=== PATIENT | female | born 1965 | race Caucasian/White ===

== ENCOUNTER 2016-08-25 13:02 | Inpatient (IN) | payer BC ==
[~2016-08-25] VITALS: Ht 157.5 cm; Wt 94.0 kg
[~2016-08-25 13:02] MED LIST: FERR-49 PO; GABA-526 PO; TRAM-40 PO
[2016-08-25] MEDS ORDERED: SOD CHLORIDE 0.9% 1,000 ML IV STA (16:49)
[2016-08-25] MEDS ORDERED: FAMOTIDINE 20 MG INJ IV STA (16:49)
[2016-08-25 17:17] LABS: ADD SCAN DIFF NO
[2016-08-25 17:20] LABS: ABNORMAL IP MESSAGE 1; HEMATOCRIT 19.6 % (37.0-47.0); MEAN CORPUSCULAR HEMOGLOBIN 19.8 pg (29.0-33.0); MEAN CORPUSCULAR VOLUME 73.1 fl (82.0-101.0); PLATELET COUNT 368 10^3/UL (140-415); RED BLOOD COUNT 2.68 10^6/ul (4.20-5.40); RED CELL DISTRIBUTION WIDTH 18.8 % (11.5-14.5); WHITE BLOOD COUNT 9.5 10^3/ul (4.8-10.8)
[2016-08-25 17:29] LABS: HEMOGLOBIN 5.3 g/dl (12.0-16.0)
[2016-08-25 17:57] LABS: EOSINOPHILS # 0.1 10^3/ul (0.0-0.5); LYMPHOCYTES # 2.7 10^3/ul (0.8-2.9); MONOCYTE # 0.6 10^3/ul (0.3-0.9); NEUTROPHIL # 6.2 10^3/ul (1.6-7.5)
[2016-08-25 17:59] LABS: INR 0.97; PARTIAL THROMBOPLASTIN TIME 25.2 Sec (25.0-35.0); PROTIME 12.9 Sec (12.2-14.2)
--- NOTE | 2016-08-25 18:00 | RADRPT ---
PROCEDURE: US Pelvis CLINICAL INDICATION: heavy vag bleeding requiring transfusion TECHNIQUE: Multiple sonographic images of the pelvis were obtained utilizing a transabdominal and endovaginal technique. The images were reviewed on a PACS workstation. COMPARISON: None. LMP: 08/18/2016 FINDINGS: The uterus measures 12.0 x 7.4 x 7.8 cm. The endometrial echo complex measures 6 mm in thickness. Trace heterogeneous endocervical fluid is noted which is likely blood products. There is a 6.1 cm anterior submucosal fibroid with prominent posterior displacement of the endometri um. The right ovary measures 2.3 x 1.4 x 1.4 cm. The left ovary measures 4.0 x 3.5 x 3.8 cm. There is no rmal vascular flow in both ovaries. There is a 3.1 cm partially circumscribed cystic lesion in the left ovary with low level internal ec hoes which may be a hemorrhagic/corpus luteal cyst. Moderate peripheral vascular flow is noted. No significant pelvic free fluid is identified. IMPRESSION: Large 6.1 cm submucosal fibroid with prominent displacement of the endometrium. Trace endocervical fluid is likely hemorrhage given the reported history. 3.1 cm complex cystic lesion in the left ovary may be a hemorrhagic/corpus luteal cyst. RPTAT: EE Physician Domonique Date Time Electronically viewed and signed by Physician Domonique on 08/25/2016 17:59 FRANCISCA
[2016-08-25 18:08] LABS: ALBUMIN 3.8 g/dl (3.3-4.9); CHLORIDE 102 mmol/L (97-110); SODIUM 141 mmol/L (135-144)
[2016-08-25 18:09] LABS: POTASSIUM 3.6 mmol/L (3.5-5.1)
[2016-08-25 18:11] LABS: ALANINE AMINOTRANSFERASE 20 IU/L (13-69); ALBUMIN/GLOBULIN RATIO 1.05; ALKALINE PHOSPHATASE 74 IU/L (42-121); ANION GAP 17 (8-16); ASPARTATE AMINO TRANSFERASE 15 IU/L (15-46); BILIRUBIN,INDIRECT 0.2 mg/dl (0-1.1); BILIRUBIN,TOTAL 0.2 mg/dl (0.2-1.3); BLOOD UREA NITROGEN 9 mg/dl (7-20); CARBON DIOXIDE 26 mmol/L (21-31); CREATININE 0.67 mg/dl (0.44-1.00); GLUCOSE 101 mg/dl (70-220); TOTAL PROTEIN 7.4 g/dl (6.1-8.1)
[2016-08-25 18:12] LABS: CALCIUM 8.7 mg/dl (8.4-10.2)
[2016-08-25 18:26] LABS: TROPONIN-I < 0.012 ng/ml (0.00-0.12)
[2016-08-25 18:32] LABS: ADD UMIC YES; URINE BILIRUBIN (Dip) NEGATIVE (NEGATIVE); URINE BLOOD (Dip) NEGATIVE (NEGATIVE); URINE COLOR LT. YELLOW (YELLOW); URINE GLUCOSE (Dip) NEGATIVE (NEGATIVE); URINE KETONES (Dip) NEGATIVE (NEGATIVE); URINE LEUKOCYTE ESTERASE (Dip) NEGATIVE (NEGATIVE); URINE NITRITE (Dip) NEGATIVE (NEGATIVE); URINE TOTAL PROTEIN (Dip) TRACE (NEGATIVE); URINE UROBILINOGEN (Dip) 0.2 E.U./dL (0.1-1.0)
[2016-08-25 18:49] LABS: BACTERIA,URINE FEW; MUCUS,URINE MODERATE; SQUAMOUS EPITHELIAL CELL,UR MANY; URINE RBCS NONE SEEN /HPF (0)
[2016-08-25] MEDS ORDERED: ONDANSETRON 4 MG INJ IV STA (18:59)
[2016-08-25] MEDS ORDERED: ONDANSETRON 4 MG INJ IV PRN (20:00)
[2016-08-25] MEDS ORDERED: ACETAMINOPHEN 325 MG TAB PO PRN (20:00)
[2016-08-25 20:39] VITALS: TEMP 99.1
--- NOTE | 2016-08-25 21:06 | ERA ---
ER Documentation Chief Complaint Date/Time DATE: 08/25/16 TIME: 20:56 Chief Complaint PT SEND PER PMD FOR LOW H&H, C/O DIZZINESS, VOMITING HPI This 51-year-old female presents for acute symptomatic anemia diagnosed by an H& H at the primary care doctor's office. She denies any GI bleeds but has had some vaginal bleeding recently. No have any vaginal bleeding today but has been vaginal bleeding for some time now. She is unaware of any specific diagnosis such as fibroids that she might have. She is feeling very weak and tired as well as occasional shortness of breath and nausea. 7 difficulty walking because when she stands she feels like she is going to pass out. No chest pain. Current pain of any kind. ROS All systems reviewed and are negative except as per history of present illness. Medications Home Meds Reported Medications Tramadol Hcl* (Ultram*) 50 Mg Tablet, 100 MG PO Q8, TAB 08/29/15 Ferrous Sulfate* (Feosol*) 1 Tab Tablet, 325 MG PO BID, TAB 08/29/15 Discontinued Reported Medications Gabapentin* (Gabapentin*) 600 Mg Tablet, 600 MG PO BID, #60 TAB 08/29/15 Allergies Allergies: Coded Allergies: No Known Allergy (Unverified , 08/25/16) PMhx/Soc History of Surgery: Yes (C SECTION X3, D AND C) Anesthesia Reaction: No Hx Neurological Disorder: No Hx Respiratory Disorders: No Hx Cardiac Disorders: No Hx Psychiatric Problems: No Hx Miscellaneous Medical Probl: No Hx Alcohol Use: No Hx Substance Use: No Hx Tobacco Use: No Smoking Status: Never smoker Physical Exam Vitals Vital Signs Date Time Temp Pulse Resp B/P Pulse Ox O2 Delivery O2 Flow Rate FiO2 08/25/16 18:39 99.1 90 20 121/84 100 Room Air 08/25/16 17:18 85 18 145/76 99 Room Air 08/25/16 17:00 Nasal Cannula 2 08/25/16 13:11 97.4 97 17 135/65 100 Physical Exam Const: [] Moderate distress, appears uncomfortable Head: Atraumatic Eyes: EOMI, PRL, pale conjunctiva of the eye. ENT: Normal External Ears, Nose and Mouth. Neck: Full range of motion..~ No meningismus. Resp: Clear to auscultation bilaterally Cardio: Regular rate and rhythm, no murmurs Abd: Soft, non tender, non distended. Normal bowel sounds Skin: No petechiae or rashes, pale Back: No midline or flank tenderness Ext: No cyanosis, or edema Neur: Awake and alert and oriented 3, cranial nerves II through XII intact, no cerebellar deficits, gait not tested Psych: Normal Mood and Affect Result Diagram: 08/25/16 1705 08/25/16 1705 Results 24 hrs Laboratory Tests Test 08/25/16 17:05 08/25/16 18:00 White Blood Count 9.510^3/ul Red Blood Count 2.6810^6/ul Hemoglobin 5.3g/dl Hematocrit 19.6% Mean Corpuscular Volume 73.1fl Mean Corpuscular Hemoglobin 19.8pg Mean Corpuscular Hemoglobin Concent 27.0g/dl Red Cell Distribution Width 18.8% Platelet Count 22862^3/UL Mean Platelet Volume 11.0fl Neutrophils % 65.0% Lymphocytes % 28.0% Monocytes % 6.0% Eosinophils % 1.0% Neutrophils # 6.210^3/ul Lymphocytes # 2.710^3/ul Monocytes # 0.610^3/ul Eosinophils # 0.110^3/ul Differential Comment Prothrombin Time 12.9Sec Prothrombin Time Ratio 1.0 INR International Normalized Ratio 0.97 Activated Partial Thromboplast Time 25.2Sec Sodium Level 141mmol/L Potassium Level 3.6mmol/L Chloride Level 102mmol/L Carbon Dioxide Level 26mmol/L Anion Gap 17 Blood Urea Nitrogen 9mg/dl Creatinine 0.67mg/dl Glucose Level 101mg/dl Calcium Level 8.7mg/dl Total Bilirubin 0.2mg/dl Direct Bilirubin 0.00mg/dl Indirect Bilirubin 0.2mg/dl Aspartate Amino Transf (AST/SGOT) 15IU/L Alanine Aminotransferase (ALT/SGPT) 20IU/L Alkaline Phosphatase 74IU/L Troponin I < 0.012ng/ml Total Protein 7.4g/dl Albumin 3.8g/dl Globulin 3.60g/dl Albumin/Globulin Ratio 1.05 Urine Color LT. YELLOW Urine Clarity SLIGHTLY CLOUDY Urine pH 7.0 Urine Specific [place] 1.015 Urine Ketones NEGATIVE Urine Nitrite NEGATIVE Urine Bilirubin NEGATIVE Urine Urobilinogen 0.2 E.U./dL Urine Leukocyte Esterase NEGATIVE Urine Microscopic RBC NONE SEEN/HPF Urine Microscopic WBC 2-5/HPF Urine Squamous Epithelial Cells MANY Urine Bacteria FEW Urine Mucus MODERATE Urine Hemoglobin NEGATIVE Urine Glucose NEGATIVE% Urine Total Protein TRACE Current Medications Medications (Trade) Dose Ordered Sig/Andrés Route PRN Reason Start Time Stop Time Status Last Admin Dose Admin Sodium Chloride (NS) 1,000 ml @ 1,000 mls/hr Q1H STAT IV 08/25/16 16:49 08/25/16 17:48 DC 08/25/16 17:09 Famotidine (Pepcid Iv) 20 mg ONCE STAT IV 08/25/16 16:49 08/25/16 16:51 DC 08/25/16 17:08 Ondansetron HCl (Zofran Inj) 4 mg ONCE STAT IV 08/25/16 18:59 08/25/16 19:00 DC Ondansetron HCl (Zofran Inj) 4 mg BRIDGE ORDER PRN IV NAUSEA AND/OR VOMITING 08/25/16 20:00 08/26/16 19:59 Acetaminophen (Tylenol Tab) 650 mg ER BRIDGE PRN PO MILD PAIN/FEVER 08/25/16 20:00 08/26/16 19:59 Procedures/MDM Acute severe symptomatic anemia secondary to vaginal bleeding over time. Patient was initially hydrated with normal saline. Hemoglobin returned at a very low level and she was transfused 3 units of packed red blood cells beginning in the emergency room. She was originally occasionally tachycardic with a heart rate over 100 on the monitor but this is improved since she began fluid and blood products administration. I have carefully monitored her with repeat physical exam and I see no signs of fluid overload yet. Symptoms of severe lightheadedness and presyncope are also improving thus far. He is going to be admitted to panel in her Dr. Rendon. I spoke with Dr. Chavez, office services coordinator on-call, who agreed to see the patient on consult. EKG interpretation: Normal sinus rhythm rate of 93, normal axis, no ST or T- wave changes concerning for acute ischemia, no concerning intervals. property assessment monitor interpretation: Normal sinus rhythm alternating with occasional sinus tachycardia followed by normal sinus rhythm. No other arrhythmias Pelvic ultrasound interpretation: Large uterine fibroid trace pelvic fluid. Critical care time 36 minutes: This includes treatment of severe symptomatic anemia secondary to blood loss, very careful fluid administration considering the volume expansion of 3 units of blood, repeat visits patient's bedside to reassess cardiopulmonary status, chart reviewed, discussion with office services coordinator, admitting doctor, patient. This does not include any billable procedures. Departure Diagnosis: Primary Impression: Severe anemia Additional Impressions: Symptomatic anemia Vaginal bleeding Fibroid uterus Generalized weakness Volume depletion due to hemorrhage Condition: SOLO Fowler DO August 25, 2016 21:06
[2016-08-25] MEDS ORDERED: METHYLPREDNISOLONE 125 MG INJ IV ONE (21:30)
[2016-08-25] MEDS ORDERED: DIPHENHYDRAMINE 50 MG INJ IV ONE (21:30)
[2016-08-25 22:22] VITALS: BP 135/60; PULSE 83; RESP 18; Ht 157.5 cm; Wt 94.0 kg
[2016-08-26 02:39] VITALS: BP 130/58; PULSE 84; RESP 18
[2016-08-26] MEDS ORDERED: BISACODYL (EC) 5 MG TAB PO PRN (04:30)
[2016-08-26] MEDS ORDERED: NACL 0.9% 3 ML SYG IV SCH (04:30)
[2016-08-26] MEDS ORDERED: DOCUSATE SODIUM 100 MG CAP PO PRN (04:30)
[2016-08-26 05:14] LABS: ADD SCAN DIFF NO
[2016-08-26 05:25] LABS: ABNORMAL IP MESSAGE 1; BASOPHILS % 0.4 % (0.0-2.0); EOSINOPHILS # 0.1 10^3/ul (0.0-0.5); EOSINOPHILS % 1.3 % (0.0-7.0); LYMPHOCYTES # 2.2 10^3/ul (0.8-2.9); LYMPHOCYTES % 24.3 % (15.0-51.0); MEAN CORPUSCULAR HEMOGLOBIN 22.6 pg (29.0-33.0); MEAN CORPUSCULAR HGB CONC 29.6 g/dl (32.0-37.0); MEAN CORPUSCULAR VOLUME 76.4 fl (82.0-101.0); MEAN PLATELET VOLUME 11.2 fl (7.4-10.4); MONOCYTE # 0.7 10^3/ul (0.3-0.9); MONOCYTES % 8.1 % (0.0-11.0); NEUTROPHIL # 5.8 10^3/ul (1.6-7.5); NEUTROPHILS % 65.3 % (39.0-77.0); NUCLEATED RED BLOOD CELLS% 0.2 /100WBC (0.0-0.0); PLATELET COUNT 312 10^3/UL (140-415); RED BLOOD COUNT 3.01 10^6/ul (4.20-5.40); RED CELL DISTRIBUTION WIDTH 19.8 % (11.5-14.5); WHITE BLOOD COUNT 8.9 10^3/ul (4.8-10.8)
[2016-08-26 05:42] LABS: HEMOGLOBIN 6.8 g/dl (12.0-16.0)
[2016-08-26 06:16] VITALS: BP 130/70; PULSE 84; RESP 18
[2016-08-26 06:30] VITALS: BP 130/58; PULSE 84; RESP 18
[2016-08-26 07:00] VITALS: BP 147/63; RESP 18
[2016-08-26] MEDS: FAMOTIDINE 20 MG TAB PO SCH ×2 (09:08→21:18)
[2016-08-26] MEDS: FERROUS SULFATE (EC) 325 MG TAB PO SCH ×2 (09:08→21:18)
--- NOTE | 2016-08-26 09:08 | HP ---
Date/Time of Note Date/Time of Note DATE: 08/26/16 TIME: 08:57 Assessment/Plan VTE Prophylaxis VTE Prophylaxis Intervention: contraindicated (Vaginal bleeding), SCD's VTE Contraindication Reason: bleeding Lines/Catheters [facility] Saline Lock Assessment/Plan Chief Complaint/Hosp Course This is a 51-year-old female being admitted to the [facility] floor for: #1 Vaginal bleeding: Hemoglobin 5.6, transfusion started in the ED will continue to monitor H&H and transfuse additional units as necessary. Will consult OB for suspected uterine fibroid bleeding as ultrasound of the pelvis did reveal 6.1 cm submucosal uterine fibroid. Regular diet. #2 DVT and GI prophylaxis: Famotidine, SCDs no chemical prophylaxis at this time secondary to bleeding Problems: HPI/ROS Admit Date/Time Admit Date/Time August 25, 2016 at 19:53 Hx of Present Illness This 51-year-old female presents for acute symptomatic anemia diagnosed by an H& H at the primary care doctor's office. She denies any GI bleeds but has had some vaginal bleeding recently. No have any vaginal bleeding today but has been vaginal bleeding for some time now. She is unaware of any specific diagnosis such as fibroids that she might have. She is feeling very weak and tired as well as occasional shortness of breath and nausea. Has difficulty walking because when she stands she feels like she is going to pass out. No chest pain. Patient reports that her periods started on August 18 and has not stopped since then. Allergies: NKDA Medications: See JUN SALVATORE Const: As per HPI Eyes : No pain discharge or redness or change in visual acuity ENT: No pain, sore throat, congestion, congestion, dysphagia or discharge Respiratory: No shortness of breath, cough, sputum, wheezing, or pleuritic pain Cardiovascular: No chest pain, palpitation, PND, or edema GI : no change in appetite, abdominal pain, nausea, vomiting, diarrhea, constipation, or change in the color his stool Genitourinary: As per HPI Musculoskeletal: No joint pain, back pain, neck pain, restricted range of motion in neck or joints Skin: No rash, bruising or hives Neuro: No headache, dizziness, syncope, seizure, focal weakness Endocrine: No polyuria, polydipsia, temperature intolerance Psych: No hallucination, depression, anxiety or suicidal ideation PMH/Family/Social Past Medical History Heavy periods and menstrual cramps Past Surgical History 3 Family History Significant Family History: no pertinent family hx Social History Alcohol Use: none Smoking Status: Never smoker Drug Use: none Exam/Review of Systems Vital Signs Vitals Vital Signs Date Time Temp Pulse Resp B/P Pulse Ox O2 Delivery O2 Flow Rate FiO2 08/26/16 07:00 98.2 73 18 147/63 99 08/26/16 06:30 Room Air 08/25/16 17:00 2 Intake and Output 08/25/16 08/25/16 08/26/16 15:00 23:00 07:00 Intake Total 350 ml 1400 ml Output Total 200 ml 1200 ml Balance 150 ml 200 ml Exam Exam General: Patient is well-developed well-nourished The patient is alert oriented -3 lying comfortably in bed. HEENT: Atraumatic, normocephalic. The pupils are equal, round and reactive. Extraocular motor are intact Neck: Supple with full range of motion. No rigidity or meningismus Chest: Nontender Lungs: Clear to auscultation bilaterally no crackles rales or wheezing Heart: Normal S1-S2, Regular rhythm and rate. No murmur, S3, or S4 Abdomen: Mild tenderness to palpation above the suprapubic area Extremities: Normal to inspection, no edema no cyanosis Neurologic: Normal mental status, speech normal, cranial nerves II through XII are intact, motor and sensory are intact, no focal weakness Additional Comments PROCEDURE: US Pelvis CLINICAL INDICATION: heavy vag bleeding requiring transfusion TECHNIQUE: Multiple sonographic images of the pelvis were obtained utilizing a transabdominal and endovaginal technique. The images were reviewed on a PACS workstation. COMPARISON: None. LMP: 08/18/2016 FINDINGS: The uterus measures 12.0 x 7.4 x 7.8 cm. The endometrial echo complex measures 6 mm in thickness. Trace heterogeneous endocervical fluid is noted which is likely blood products. There is a 6.1 cm anterior submucosal fibroid with prominent posterior displacement of the endometrium. The right ovary measures 2.3 x 1.4 x 1.4 cm. The left ovary measures 4.0 x 3.5 x 3.8 cm. There is normal vascular flow in both ovaries. There is a 3.1 cm partially circumscribed cystic lesion in the left ovary with low level internal echoes which may be a hemorrhagic/corpus luteal cyst. Moderate peripheral vascular flow is noted. No significant pelvic free fluid is identified. IMPRESSION: Large 6.1 cm submucosal fibroid with prominent displacement of the endometrium. Trace endocervical fluid is likely hemorrhage given the reported history. 3.1 cm complex cystic lesion in the left ovary may be a hemorrhagic/corpus luteal cyst. Labs Result Diagram: 08/26/16 0430 08/25/16 1705 Medications Medications Current Medications Acetaminophen (Tylenol Tab) 650 mg Q6H PRN PO PAIN LEVEL 1-3 OR FEVER; Start at 04:30 Docusate Sodium (Colace) 100 mg Q12H PRN PO CONSTIPATION; Start 08/26/16 at 04: 30 Bisacodyl (Dulcolax) 5 mg DAILY PRN PO CONSTIPATION; Start 08/26/16 at 04:30 Famotidine (Pepcid) 20 mg Q12 PO ; Start 08/26/16 at 09:00 Ferrous Sulfate (Ferrous Sulfate (Ec)) 325 mg BID PO ; Start 08/26/16 at 09:00 DARIEN RIVERA August 26, 2016 09:07
--- NOTE | 2016-08-26 10:16 | PN ---
Date/Time of Note Date/Time of Note DATE: 08/26/16 TIME: 10:10 Assessment/Plan VTE Prophylaxis VTE Prophylaxis Intervention: contraindicated Lines/Catheters [facility] Saline Lock Assessment/Plan Chief Complaint/Hosp Course Assessment 1. Severe anemia secondary to vaginal bleeding from underlying fibroid disease Plan 1. PINMAKER evaluation 2. Continue packed red blood cells 3. Encourage ambulation Disposition The patient states she would like to defer surgery for now' until her next of kin is available to take care of her children. We will await PINMAKER recommendations patient will likely need iron replacement. Problems: Subjective 24 Hr Interval Summary Free Text/Dictation Patient comfortable this morning no new events receiving Packed red blood cells Exam/Review of Systems Vital Signs Vitals Vital Signs Date Time Temp Pulse Resp B/P Pulse Ox O2 Delivery O2 Flow Rate FiO2 08/26/16 07:00 98.2 73 18 147/63 99 08/26/16 06:30 Room Air 08/25/16 17:00 2 Intake and Output 08/25/16 08/25/16 08/26/16 15:00 23:00 07:00 Intake Total 350 ml 1400 ml Output Total 200 ml 1200 ml Balance 150 ml 200 ml Exam GENERAL: Well-nourished well-developed lady comfortable at rest VITAL SIGNS: per chart NECK: Supple. No JVD or lymphadenopathy. CARDIAC EXAM: S1, S2. No added sounds or murmurs. CHEST: clear bilaterally, No added sounds, rales or wheezes ABDOMEN: Soft, nontender. No guarding or rebound. EXTREMITIES: No cyanosis, clubbing or edema. NEUROLOGIC: Generalized weakness. No focal deficits. Results Result Diagram: 08/26/16 0430 08/25/16 1705 Results 24 hrs Laboratory Tests Test 08/25/16 17:05 08/25/16 18:00 08/26/16 04:30 White Blood Count 9.5 8.9 Red Blood Count 2.68 L 3.01 L Hemoglobin 5.3 *L 6.8 #*L Hematocrit 19.6 L 23.0 L Mean Corpuscular Volume 73.1 L 76.4 L Mean Corpuscular Hemoglobin 19.8 L 22.6 L Mean Corpuscular Hemoglobin Concent 27.0 L 29.6 L Red Cell Distribution Width 18.8 H 19.8 H Platelet Count 368 312 Mean Platelet Volume 11.0 H 11.2 H Neutrophils % 65.0 65.3 Lymphocytes % 28.0 24.3 Monocytes % 6.0 8.1 Eosinophils % 1.0 1.3 Neutrophils # 6.2 5.8 Lymphocytes # 2.7 2.2 Monocytes # 0.6 0.7 Eosinophils # 0.1 0.1 Differential Comment Prothrombin Time 12.9 Prothrombin Time Ratio 1.0 INR International Normalized Ratio 0.97 Activated Partial Thromboplast Time 25.2 Sodium Level 141 Potassium Level 3.6 Chloride Level 102 Carbon Dioxide Level 26 Anion Gap 17 H Blood Urea Nitrogen 9 Creatinine 0.67 Glucose Level 101 Calcium Level 8.7 Total Bilirubin 0.2 Direct Bilirubin 0.00 Indirect Bilirubin 0.2 Aspartate Amino Transf (AST/SGOT) 15 Alanine Aminotransferase (ALT/SGPT) 20 Alkaline Phosphatase 74 Troponin I < 0.012 Total Protein 7.4 Albumin 3.8 Globulin 3.60 H Albumin/Globulin Ratio 1.05 Urine Color LT. YELLOW Urine Clarity SLIGHTLY CLOUDY Urine pH 7.0 Urine Specific [place] 1.015 Urine Ketones NEGATIVE Urine Nitrite NEGATIVE Urine Bilirubin NEGATIVE Urine Urobilinogen 0.2 E.U./dL Urine Leukocyte Esterase NEGATIVE Urine Microscopic RBC NONE SEEN Urine Microscopic WBC 2-5 Urine Squamous Epithelial Cells MANY Urine Bacteria FEW Urine Mucus MODERATE Urine Hemoglobin NEGATIVE Urine Glucose NEGATIVE Urine Total Protein TRACE Basophils % 0.4 Nucleated Red Blood Cells % 0.2 H Basophils # 0.0 Nucleated Red Blood Cells # 0.0 Medications Medications Current Medications Acetaminophen (Tylenol Tab) 650 mg Q6H PRN PO PAIN LEVEL 1-3 OR FEVER; Start at 04:30 Docusate Sodium (Colace) 100 mg Q12H PRN PO CONSTIPATION; Start 08/26/16 at 04: 30 Bisacodyl (Dulcolax) 5 mg DAILY PRN PO CONSTIPATION; Start 08/26/16 at 04:30 Famotidine (Pepcid) 20 mg Q12 PO Last administered on 08/26/16 09:08; Admin Dose 20 MG; Start 08/26/16 at 09:00 Ferrous Sulfate (Ferrous Sulfate (Ec)) 325 mg BID PO Last administered on 09:08; Admin Dose 325 MG; Start 08/26/16 at 09:00 JEREMIAH NUNO MD, [facility] August 26, 2016 10:16
[2016-08-26 13:12] LABS: ADD SCAN DIFF NO
[2016-08-26 13:20] LABS: BASOPHILS % 0.5 % (0.0-2.0); EOSINOPHILS # 0.2 10^3/ul (0.0-0.5); EOSINOPHILS % 2.2 % (0.0-7.0); HEMATOCRIT 26.3 % (37.0-47.0); HEMOGLOBIN 7.9 g/dl (12.0-16.0); LYMPHOCYTES # 2.1 10^3/ul (0.8-2.9); LYMPHOCYTES % 25.6 % (15.0-51.0); MEAN CORPUSCULAR HEMOGLOBIN 23.1 pg (29.0-33.0); MEAN CORPUSCULAR VOLUME 76.9 fl (82.0-101.0); MEAN PLATELET VOLUME 10.8 fl (7.4-10.4); MONOCYTE # 0.6 10^3/ul (0.3-0.9); MONOCYTES % 7.7 % (0.0-11.0); NEUTROPHIL # 5.2 10^3/ul (1.6-7.5); NEUTROPHILS % 63.3 % (39.0-77.0); NUCLEATED RED BLOOD CELLS% 0.2 /100WBC (0.0-0.0); PLATELET COUNT 312 10^3/UL (140-415); RED BLOOD COUNT 3.42 10^6/ul (4.20-5.40); RED CELL DISTRIBUTION WIDTH 19.4 % (11.5-14.5); WHITE BLOOD COUNT 8.2 10^3/ul (4.8-10.8)
[2016-08-26 17:49] LABS: IRON 50 ug/dl (35-150)
--- NOTE | 2016-08-26 17:54 | CONS ---
Date/Time of Note Date/Time of Note DATE: 08/26/16 TIME: :28 Assessment/Plan Assessment/Plan Chief Complaint/Hosp Course Symptomatic anemia secondary to acute on chronic anemia due to long-term menometrorrhagia. She is a status post D&C 1 year ago, consistent with complex endometrial Hyperplasia without atypia. Patient had not been on any medication or treatments since last year. Her prior Pap history is unknown. she is status post blood transfusion, hemoglobin improved as well as her symptoms I have discussed with the patient etiology of abnormal uterine bleeding, could be in her case multifactorial including enlarged submucosal fibroid as well as perimenopausal menometrorrhagia, hypothyroidism as 1 of the other etiologies is possible as well. Thyroid labs has been ordered as well as iron studies. Recommend follow-up with a thyroid labs she also had a history of complex endometrial hyperplasia without atypia Which essentially increased risk of endometrial cancer as well without treatment , Patient needs to proceed with repeat D&C, ideally if possible in this admission to ensure that there is no endometrial cancer currently present. She also has a complex right adnexal cystic mass. Recommended proceed with tumor markers including CA 125 CA-19-9 which has been already ordered. Will follow up with the results as well. Patient is eventually a candidate for hysterectomy, if her biopsy as well as tumor markers are negative will consider an simple hysterectomy. Currently bleeding stopped. I have discussed with the patient about final plan with surgery. Patient currently desires to postpone hysterectomy until after 2 months when her comes back from [place]. She needs to have the rest of the workup after D&C including Pap smear as outpatient in her [facility] office which is Dr. Harrison. She already has established care with Dr. Harrison last year. Recommended to have a follow-up with Dr. Harrison after D&C. would recommend the endometrial biopsy will be sent as a sol specimen she is a candidate for Lupron with norethindrone add back if the biopsy does not show any evidence of endometrial cancer. If there is any concern for malignancy including abnormal pathology and D&C or abnormal tumor markers would refer the patient to [facility] oncology. Patient can be discharged home with norethindrone twice daily, after D&C with follow-up with Dr. Harrison. she could then be able to receive Lupron as outpatient if the pathology shows benign finding, considering her bleeding does not recur with a plan to proceed with hysterectomy that would potentially help with. Improving her iron stores as well as shrinking the size of the fibroid. This plan has been discussed with the patient in detail If the patient agrees to proceed with D&C, can book for tomorrow. currently refused D&C or any surgery and this admission. Will consider to rediscuss again with the patient and her family Problems: Consultation Date/Type/Reason Admit Date/Time August 25, 2016 at 19:53 Date of Consultation: August 26, 2016 Type of Consultation: [facility] [employer] Reason for Consultation Severe anemia secondary to menometrorrhagia Hx of Present Illness 51-year-old [place] female was admitted last night due to severe symptomatic anemia secondary to chronic menometrorrhagia with acute episodes of heavy bleeding for the past month. Patient reports history of menometrorrhagia since 2 years ago, however her bleeding worsened for the past 2 months and specifically for the past 10 days. She could not get out of the house due to continued menorrhagia and heavy bleeding. She was feeling dizzy and weak and tired. She was seen in her primary care office yesterday and was noted to be pale. Per patient she had tested with HemoCue in the office and hemoglobin was 4 and for that reason was referred by her PCP to the hospital for blood transfusion and workup of symptomatic anemia and menometrorrhagia. Patient states that she had lost insurance for about a year. After reestablishing of her insurance she was seen by Dr. Harrison last year in August 2015 due to continued menometrorrhagia. She was noted to have fibroid uterus and underwent D&C. Pathology reviewed and was consistent with focal complex endometrial hyperplasia without atypia. Patient did not receive any treatment in the interim up until this admission. She denies any prior history of blood transfusion. She denies any known history of thyroid problem as well as denies any symptoms. She denies unintentional weight loss, palpitation, anxiety or any hypothyroidism symptoms. She is unsure whether she has been ever tested for the thyroid however she reports history of fibroid uterus. Per patient she was told that she needed hysterectomy however never scheduled but plans to do with in the next couple months. Patient currently in bed and denies any shortness of breath, chest pain, palpitation, dizziness or lightheadedness or any other symptoms. She reports that her bleeding significantly decreased currently. She reports her symptoms improved with blood transfusion. Patient desires to have surgery but not for the next 2 month due to planned trip of her . She desires to have the hysterectomy done when her returns back after 2 months. Patient denies any prior history of abnormal Pap smear or mammogram in the past. She is somewhat poor historian. She is unaware of the days of her prior Pap smear or mammogram. 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 This happened in [place] Last Pap smear: Unsure Last mammogram: Unsure. Denies feeling any breast lump or mass Medical History: no pertinent history Past Surgical History Past Surgical Hx: no surgical history Family History Significant Family History: no pertinent family hx Social History Alcohol Use: none Smoking Status: Never smoker Drug Use: none Other Social History Patient works at [employer] Denies a smoking, drinking or using any drugs. She has never been smoker Exam/Review of Systems Vital Signs Vitals Vital Signs Date Time Temp Pulse Resp B/P Pulse Ox O2 Delivery O2 Flow Rate FiO2 08/26/16 07:00 98.2 73 18 147/63 99 08/26/16 06:30 Room Air 08/25/16 17:00 2 Intake and Output 08/25/16 08/25/16 08/26/16 14:59 22:59 06:59 Intake Total 350 ml 1400 ml Output Total 200 ml 1200 ml Balance 150 ml 200 ml Exam Constitutional: alert, oriented, well developed Psych: nl mood/affect, no complaints Head: atraumatic, normocephalic Eyes: EOMI, nl conjunctiva, nl lids, other (? Exophthalmos, could be normal variant, if thyroid labs are normal) Neck: non-tender, other (No thyromegaly), supple Respiratory: clear to auscultation, normal air movement Cardiovascular: nl pulses, regular rate and rhythm Gastrointestinal: nl liver, spleen, non-tender, soft Genitourinary - Female: other (Uterus midline and enlarged, firm. Uterus palpable up to 1-2 cm above the umbilicus, exam consistent with fibroid uterus. There is tenderness in palpation of the right adnexa. Right and left ovary are not palpable by vaginal exam however there is moderate tenderness in palpation in the right adnexa. No CMT. Speculum exam done. No blood in the vault. Cervix looks normal. No vaginal or cervical lesion. No abnormal vaginal discharge.) Musculoskeletal: other (Moderate bilateral varicosity more in the right side and in the upper thigh noted. No calf tenderness, no cords palpable, negative Homans sign.) Neurological: LEAD INJECTION MOLD TECHNICIAN II-XII intact, nl mental status, nl speech, nl strength Skin: other (Pale) Results Result Diagram: 08/26/16 1250 08/25/16 1705 Results 24 hrs Laboratory Tests Test 08/25/16 18:00 08/26/16 04:30 08/26/16 12:50 Urine Color LT. YELLOW Urine Clarity SLIGHTLY CLOUDY Urine pH 7.0 Urine Specific [place] 1.015 Urine Ketones NEGATIVE Urine Nitrite NEGATIVE Urine Bilirubin NEGATIVE Urine Urobilinogen 0.2 E.U./dL Urine Leukocyte Esterase NEGATIVE Urine Microscopic RBC NONE SEEN Urine Microscopic WBC 2-5 Urine Squamous Epithelial Cells MANY Urine Bacteria FEW Urine Mucus MODERATE Urine Hemoglobin NEGATIVE Urine Glucose NEGATIVE Urine Total Protein TRACE White Blood Count 8.9 8.2 Red Blood Count 3.01 L 3.42 L Hemoglobin 6.8 #*L 7.9 L Hematocrit 23.0 L 26.3 L Mean Corpuscular Volume 76.4 L 76.9 L Mean Corpuscular Hemoglobin 22.6 L 23.1 L Mean Corpuscular Hemoglobin Concent 29.6 L 30.0 L Red Cell Distribution Width 19.8 H 19.4 H Platelet Count 312 312 Mean Platelet Volume 11.2 H 10.8 H Neutrophils % 65.3 63.3 Lymphocytes % 24.3 25.6 Monocytes % 8.1 7.7 Eosinophils % 1.3 2.2 Basophils % 0.4 0.5 Nucleated Red Blood Cells % 0.2 H 0.2 H Neutrophils # 5.8 5.2 Lymphocytes # 2.2 2.1 Monocytes # 0.7 0.6 Eosinophils # 0.1 0.2 Basophils # 0.0 0.0 Nucleated Red Blood Cells # 0.0 0.0 Medications Medications Current Medications Acetaminophen (Tylenol Tab) 650 mg Q6H PRN PO PAIN LEVEL 1-3 OR FEVER; Start at 04:30 Docusate Sodium (Colace) 100 mg Q12H PRN PO CONSTIPATION; Start 08/26/16 at 04: 30 Bisacodyl (Dulcolax) 5 mg DAILY PRN PO CONSTIPATION; Start 08/26/16 at 04:30 Famotidine (Pepcid) 20 mg Q12 PO Last administered on 08/26/16 09:08; Admin Dose 20 MG; Start 08/26/16 at 09:00 Ferrous Sulfate (Ferrous Sulfate (Ec)) 325 mg BID PO Last administered on 09:08; Admin Dose 325 MG; Start 08/26/16 at 09:00 Leuprolide Acetate (Lupron Depot) 11.25 mg ONCE ONCE IM ; Start 08/26/16 at 17: 30; Stop 08/26/16 at 17:31; Status UNV Norethindrone (Aygestin) 5 mg BID PO ; Start 08/26/16 at 21:00 Procedures Procedures Vital Signs Date Time Temp Pulse Resp B/P Pulse Ox O2 Delivery O2 Flow Rate FiO2 08/26/16 07:00 98.2 73 18 147/63 99 08/26/16 06:30 Room Air 08/25/16 17:00 2 Intake and Output 08/25/16 08/25/16 08/26/16 14:59 22:59 06:59 Intake Total 350 ml 1400 ml Output Total 200 ml 1200 ml Balance 150 ml 200 ml VS - Last 72 Hours, by Label Date Time Temp Pulse Resp B/P Pulse Ox O2 Delivery O2 Flow Rate FiO2 08/26/16 07:00 98.2 73 18 147/63 99 08/26/16 06:30 98.0 84 18 130/58 97 Room Air 08/26/16 06:16 98.2 84 18 130/70 97 Room Air 08/26/16 02:39 98.0 84 18 130/58 98 Room Air 08/25/16 22:22 98.0 83 18 135/60 97 Room Air 08/25/16 20:39 99.1 90 20 118/80 100 Room Air 08/25/16 18:39 99.1 90 20 121/84 100 Room Air 08/25/16 17:18 85 18 145/76 99 Room Air 08/25/16 17:00 Nasal Cannula 2 08/25/16 13:11 97.4 97 17 135/65 100 Pelvic ultrasound consistent with a large intrauterine submucosal fibroid with distortion of endometrial cavity as well as a complex right adnexal cyst 3 and half centimeter Pathology report from prior D&C done in August 2015 reviewed. That showed focal complex endometrial hyperplasia without atypia. GRETCHEN TRAN MD August 26, 2016 17:39
[2016-08-26 17:58] LABS: TOTAL IRON BINDING CAPACITY 437 ug/dl (241-421)
[2016-08-26 19:58] VITALS: BP 128/72; RESP 20
[2016-08-26] MEDS: NORETHINDRONE 5 MG TAB PO SCH (21:18)
[2016-08-27] VITALS (18 sets, daily range): BP systolic 102–150; BP diastolic 54–70; PULSE 64–76; RESP 16–20
[2016-08-27] MEDS: ACETAMINOPHEN 325 MG TAB PO PRN (04:28)
[2016-08-27 05:06] LABS: ADD SCAN DIFF NO
[2016-08-27 05:11] LABS: BASOPHILS % 0.3 % (0.0-2.0); EOSINOPHILS # 0.2 10^3/ul (0.0-0.5); HEMATOCRIT 28.5 % (37.0-47.0); HEMOGLOBIN 8.9 g/dl (12.0-16.0); LYMPHOCYTES # 2.3 10^3/ul (0.8-2.9); LYMPHOCYTES % 25.1 % (15.0-51.0); MEAN CORPUSCULAR HEMOGLOBIN 24.3 pg (29.0-33.0); MEAN CORPUSCULAR HGB CONC 31.2 g/dl (32.0-37.0); MEAN CORPUSCULAR VOLUME 77.9 fl (82.0-101.0); MEAN PLATELET VOLUME 11.3 fl (7.4-10.4); MONOCYTE # 0.6 10^3/ul (0.3-0.9); MONOCYTES % 6.9 % (0.0-11.0); NEUTROPHIL # 5.9 10^3/ul (1.6-7.5); NEUTROPHILS % 64.7 % (39.0-77.0); NUCLEATED RED BLOOD CELLS% 0.3 /100WBC (0.0-0.0); PLATELET COUNT 309 10^3/UL (140-415); RED BLOOD COUNT 3.66 10^6/ul (4.20-5.40); RED CELL DISTRIBUTION WIDTH 20.5 % (11.5-14.5); WHITE BLOOD COUNT 9.1 10^3/ul (4.8-10.8)
[2016-08-27 05:31] LABS: CREATININE 0.67 mg/dl (0.44-1.00)
[2016-08-27 05:32] LABS: CALCIUM 8.4 mg/dl (8.4-10.2); MAGNESIUM 2.1 mg/dl (1.7-2.5); PHOSPHORUS 3.4 mg/dl (2.5-4.9)
[2016-08-27 05:56] LABS: POTASSIUM 3.7 mmol/L (3.5-5.1)
[2016-08-27] MEDS: FAMOTIDINE 20 MG TAB PO SCH ×2 (08:54→21:16)
[2016-08-27] MEDS: FERROUS SULFATE (EC) 325 MG TAB PO SCH ×2 (08:54→21:16)
[2016-08-27] MEDS: NORETHINDRONE 5 MG TAB PO SCH ×2 (08:54→21:15)
--- NOTE | 2016-08-27 14:15 | PN ---
Date/Time of Note Date/Time of Note DATE: 08/27/16 TIME: 14:12 Assessment/Plan VTE Prophylaxis VTE Prophylaxis Intervention: SCD's Lines/Catheters [facility] Saline Lock Assessment/Plan Chief Complaint/Hosp Course Assessment and plan 1.Symptomatic anemia secondary to acute on chronic anemia due to long-term menometrorrhagia. Patient is status post transfusion of packed red blood cell Continue to monitor hemoglobin hematocrit Follow up iron panel and treat accordingly 2. menometrorrhagia. This is likely secondary to fibroid [facility] team has been consulted Plan for D&C today 3. submucosal fibroid with prominent displacement of the endometrium [facility] team following Follow up pathology as per [facility] team Problems: Subjective 24 Hr Interval Summary Free Text/Dictation Patient continues to complain of having minimal abdominal discomfort No nausea vomiting diarrhea N.p.o. secondary to upcoming procedure Exam/Review of Systems Vital Signs Vitals Vital Signs Date Time Temp Pulse Resp B/P Pulse Ox O2 Delivery O2 Flow Rate FiO2 08/27/16 08:29 98.2 68 18 112/56 96 08/26/16 06:30 Room Air 08/25/16 17:00 2 Intake and Output 08/26/16 08/26/16 08/27/16 15:00 23:00 07:00 Intake Total 1840 ml 750 ml Output Total 2100 ml 550 ml Balance -260 ml 200 ml Exam General: The patient is moderately overweight, Not in acute distress. HEENT: Atraumatic, normocephalic. The pupils are equal and round . Neck: Supple with full range of motion. Chest: Normal expansion of the thorax during inspiration Lungs: Clear to auscultation bilaterally Heart: Normal S1-S2, Regular rhythm and rate. Abdomen: Soft , nontender, nondistended , bowel sounds are present. Extremities: Normal to inspection, no edema no cyanosis Neurologic: Normal mental status,The patient is awake, alert and oriented . Results Result Diagram: 08/27/16 0415 08/27/16 0415 Results 24 hrs Laboratory Tests Test 08/27/16 04:15 White Blood Count 9.1 Red Blood Count 3.66 L Hemoglobin 8.9 L Hematocrit 28.5 L Mean Corpuscular Volume 77.9 L Mean Corpuscular Hemoglobin 24.3 L Mean Corpuscular Hemoglobin Concent 31.2 L Red Cell Distribution Width 20.5 H Platelet Count 309 Mean Platelet Volume 11.3 H Neutrophils % 64.7 Lymphocytes % 25.1 Monocytes % 6.9 Eosinophils % 2.0 Basophils % 0.3 Nucleated Red Blood Cells % 0.3 H Neutrophils # 5.9 Lymphocytes # 2.3 Monocytes # 0.6 Eosinophils # 0.2 Basophils # 0.0 Nucleated Red Blood Cells # 0.0 Sodium Level 140 Potassium Level 3.7 Chloride Level 108 Carbon Dioxide Level 23 Anion Gap 13 Blood Urea Nitrogen 8 Creatinine 0.67 Glucose Level 91 Calcium Level 8.4 Phosphorus Level 3.4 Magnesium Level 2.1 Medications Medications Current Medications Acetaminophen (Tylenol Tab) 650 mg Q6H PRN PO PAIN LEVEL 1-3 OR FEVER Last administered on 08/27/16 04:28; Admin Dose 650 MG; Start 08/26/16 at 04:30 Docusate Sodium (Colace) 100 mg Q12H PRN PO CONSTIPATION; Start 08/26/16 at 04: 30 Bisacodyl (Dulcolax) 5 mg DAILY PRN PO CONSTIPATION; Start 08/26/16 at 04:30 Famotidine (Pepcid) 20 mg Q12 PO Last administered on 08/27/16 08:54; Admin Dose 20 MG; Start 08/26/16 at 09:00 Ferrous Sulfate (Ferrous Sulfate (Ec)) 325 mg BID PO Last administered on 08:54; Admin Dose 325 MG; Start 08/26/16 at 09:00 Norethindrone (Aygestin) 5 mg BID PO Last administered on 08/27/16 08:54; Admin Dose 5 MG; Start 08/26/16 at 21:00 DANAE EG MD August 27, 2016 14:15
[2016-08-27] MEDS ORDERED: PROPOFOL 20 ML ONE (16:38)
[2016-08-27] MEDS ORDERED: MIDAZOLAM 1 MG/ML 2 ML INJ ONE (16:38)
[2016-08-27] MEDS ORDERED: FENTAnyl 50 MCG/ML VIAL ONE (16:38)
--- NOTE | 2016-08-27 16:54 | HP ---
Date/Time of Note Date/Time of Note DATE: 08/27/16 TIME: 16:51 Assessment/Plan VTE Prophylaxis VTE Prophylaxis Intervention: ambulation Lines/Catheters [facility] Saline Lock HPI/ROS Admit Date/Time Admit Date/Time August 27, 2016 Preoperative H&P Hx of Present Illness This patient is a 51 years old 3 para 3 who came to the hospital due to prolonged period of vaginal bleeding and the resulting sever anemia . 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 She came to this hospital due to vaginal bleeding and severe secondary anemia with Hb of 5.3. Received 4 units of packed. call .she again did not accept to have a D&C . 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 Patient reports history of menometrorrhagia since 2 years ago, however her bleeding worsened for the past 2 months and specifically for the past 10 days. She could not get out of the house due to continued menorrhagia and heavy bleeding. She was feeling dizzy and weak and tired. She was seen in her primary care office yesterday and was noted to be pale. Per patient she had tested with HemoCue in the office and hemoglobin was 4 and for that reason was referred by her PCP to the hospital for blood transfusion and workup of symptomatic anemia and menometrorrhagia. . She was noted to have fibroid uterus and underwent D&C. Pathology reviewed and was consistent with focal complex endometrial hyperplasia without atypia. Patient did not receive any treatment in the interim up until this admission. She denies any prior history of blood transfusion. She denies any known history of thyroid problem as well as denies any symptoms. She denies unintentional weight loss, palpitation, anxiety or any hypothyroidism symptoms. She is unsure whether she has been ever tested for the thyroid however she reports history of fibroid uterus. Per patient she was told that she needed hysterectomy however never scheduled but plans to do with in the next couple months. Patient currently in bed and denies any shortness of breath, chest pain, palpitation, dizziness or lightheadedness or any other symptoms. She reports that her bleeding significantly decreased currently. She reports her symptoms improved with blood transfusion. Patient desires to have surgery but not for the next 2 month due to planned trip of her . She desires to have the hysterectomy done when her returns back after 2 months. Patient denies any prior history of abnormal Pap smear or mammogram in the past. She is somewhat poor historian. She is unaware of the days of her prior Pap smear or mammogram ). In fact patient did not agree to any surgical procedures including D & C or hysterectomy . Today I talked to her and her (who apparently just returned from [facility]) , both speak and understand [place]. I explained to them in detail the nature and the difference of a D& C and a Hysterectomy. I answered to all of their questions and concerns. they both understood and agreed for her to have a D & C today. I also mentioned to them the possibility of reoccurrence of vaginal bleeding and the eventual need for hysterectomy . They understand all of those as well. ROS Eyes: no complaints ENT: no complaints Respiratory: no complaints Cardiovascular: no complaints Gastrointestinal: no complaints Genitourinary: other (Vaginal bleeding that resolved.) Musculoskeletal: no complaints Skin: no complaints Neurologic: no complaints Lymphatic: no complaints Psychological: nl mood/affect, no complaints Immunologic: no complaints PMH/Family/Social Past Medical History Medical History: no pertinent history Past Surgical History Past Surgical Hx: no surgical history Social History Alcohol Use: none Smoking Status: Never smoker Drug Use: none Exam/Review of Systems Vital Signs Vitals Vital Signs Date Time Temp Pulse Resp B/P Pulse Ox O2 Delivery O2 Flow Rate FiO2 08/27/16 15:50 98.2 76 20 128/67 98 Room Air 08/25/16 17:00 2 Intake and Output 08/26/16 08/26/16 08/27/16 15:00 23:00 07:00 Intake Total 1840 ml 750 ml Output Total 2100 ml 550 ml Balance -260 ml 200 ml Labs Result Diagram: 08/27/16 0415 08/27/16 0415 Medications Medications Current Medications Acetaminophen (Tylenol Tab) 650 mg Q6H PRN PO PAIN LEVEL 1-3 OR FEVER Last administered on 08/27/16t 04:28; Admin Dose 650 MG; Start 08/26/16 at 04:30 Docusate Sodium (Colace) 100 mg Q12H PRN PO CONSTIPATION; Start 08/26/16 at 04: 30 Bisacodyl (Dulcolax) 5 mg DAILY PRN PO CONSTIPATION; Start 08/26/16 at 04:30 Famotidine (Pepcid) 20 mg Q12 PO Last administered on 08/27/16 08:54; Admin Dose 20 MG; Start 08/26/16 at 09:00 Ferrous Sulfate (Ferrous Sulfate (Ec)) 325 mg BID PO Last administered on 08:54; Admin Dose 325 MG; Start 08/26/16 at 09:00 Norethindrone (Aygestin) 5 mg BID PO Last administered on 08/27/16 08:54; Admin Dose 5 MG; Start 08/26/16 at 21:00 KANDIS ALANIS MD August 27, 2016 16:54 KANDIS ALANIS MD August 27, 2016 16:54 Famotidine (Pepcid) 20 mg Q12 PO Last administered on 08/27/16 08:54; Admin Dose 20 MG; Start 08/26/16 at 09:00 Ferrous Sulfate (Ferrous Sulfate (Ec)) 325 mg BID PO Last administered on 08:54; Admin Dose 325 MG; Start 08/26/16 at 09:00 Norethindrone (Aygestin) 5 mg BID PO Last administered on 08/27/16 08:54; Admin Dose 5 MG; Start 08/26/16 at 21:00 KANDIS ALANIS MD August 27, 2016 16:54
[2016-08-27] MEDS ORDERED: hydrALAzine 20 MG INJ IV PRN (17:00)
[2016-08-27] MEDS ORDERED: HYDROmorphONE (0.2 MG/ML) 10ML SYG IV PRN ×3 (17:00)
[2016-08-27] MEDS ORDERED: LABETALOL HCL 20MG INJ IV PRN (17:00)
[2016-08-27] MEDS ORDERED: EPHEDrine SULFATE 50 MG/5 ML SYG IV PRN (17:00)
[2016-08-27] MEDS ORDERED: METOCLOPRAMIDE 10 MG INJ IV PRN (17:00)
[2016-08-27] MEDS ORDERED: FENTAnyl 50 MCG/ML VIAL IV PRN ×3 (17:00)
[2016-08-27] MEDS ORDERED: MEPERIDINE 25 MG INJ IV PRN (17:00)
[2016-08-27] MEDS ORDERED: ONDANSETRON 4 MG INJ IV PRN (17:00)
[2016-08-27] MEDS ORDERED: DIPHENHYDRAMINE 50 MG INJ IV PRN (17:00)
[2016-08-27] MEDS ORDERED: morphine (1 MG/ML) 10ML SYRINGE IV PRN ×3 (17:00)
[2016-08-27] MEDS ORDERED: METOCLOPRAMIDE 10 MG INJ ONE (17:01)
[2016-08-27] MEDS ORDERED: ONDANSETRON 4 MG INJ ONE (17:01)
[2016-08-27] MEDS ORDERED: DEXAMETHASONE 4 MG/ML 1 ML INJ ONE (17:02)
[2016-08-27] MEDS ORDERED: KETOROLAC 30 MG INJ ONE (17:02)
--- NOTE | 2016-08-27 17:39 | OPR ---
Operative Report Planned Procedure Procedure date August 27, 2016 Preop postoperative diagnosis Menometrorrhagia Large intrauterine fibroid History of endometrial hyperplasia Procedure(s) Procedure Dilatation and curettage under general anesthesia This patient is a 51 years old 3 para 3 who came to the hospital due to vaginal bleeding and ultrasound reported a 8 X 10 cm fibroid inside the uterus . She has a history of endometrial hyperplasia which was found on a D& C last year. Procedure: Under satisfactory general anesthesia patient was placed in supine position vaginal area were prepped and patient was draped. A pelvic examination was performed. Uterus was enlarged about 11-10 cm and a weighted speculum was placed inside the vagina and the cervix was picked up with a tenaculum. The uterus sounded about 10 cm The dilatation of the cervix was performed easily up to 8 mm Using a vacuum curette 7 mm suctioning was performed and endometrial tissues was collected. At the end of this procedure patient was transferred to recovery room in stable condition This specimen for sent for pathological examination Pre-procedure diagnosis menometrorrhagia , endometrial myoma Anesthesia Type: general Post-Procedure Specimen removed: Yes Specimen description Endometrial aspirant and curettings Complications: None Pt Condition post procedure: stable KANDIS ALANIS MD August 27, 2016 17:39 I, the undersigned physician, hereby certify that I have discussed the procedure described in this consent form with this patient (or the patient's legal sales representative girls' apparel), including: * The risk and benefits of the procedure; * Any adverse reactions that may reasonably be expected to occur; * Any alternative efficacious methods of treatment which may be medically viable ; * The potential problems that may occur during recuperation; * Potential for blood transfusion and associated risks/benefits; and * Any research or economic interest I may have regarding this treatment. I further certify that the patient/legally responsible person was encouraged to ask question and that all questions were answered. KANDIS ALANIS MD August 27, 2016 17:39 ask question and that all questions were answered. KANDIS ALANIS MD August 27, 2016 17:39
[2016-08-27] MEDS ORDERED: LEUPROLIDE 7.5 MG INJ IM ONE (18:00)
[2016-08-28 05:15] LABS: ADD SCAN DIFF NO
[2016-08-28 05:22] LABS: BASOPHILS % 0.2 % (0.0-2.0); EOSINOPHILS % 0.1 % (0.0-7.0); HEMOGLOBIN 9.3 g/dl (12.0-16.0); LYMPHOCYTES # 1.4 10^3/ul (0.8-2.9); LYMPHOCYTES % 11.4 % (15.0-51.0); MEAN CORPUSCULAR HEMOGLOBIN 23.5 pg (29.0-33.0); MEAN CORPUSCULAR VOLUME 78.5 fl (82.0-101.0); MEAN PLATELET VOLUME 11.1 fl (7.4-10.4); MONOCYTE # 0.4 10^3/ul (0.3-0.9); NEUTROPHIL # 10.4 10^3/ul (1.6-7.5); NEUTROPHILS % 84.6 % (39.0-77.0); NUCLEATED RED BLOOD CELLS% 0.2 /100WBC (0.0-0.0); PLATELET COUNT 327 10^3/UL (140-415); RED BLOOD COUNT 3.95 10^6/ul (4.20-5.40); RED CELL DISTRIBUTION WIDTH 21.2 % (11.5-14.5); WHITE BLOOD COUNT 12.2 10^3/ul (4.8-10.8)
[2016-08-28 05:50] LABS: IRON 27 ug/dl (35-150)
[2016-08-28 05:58] LABS: CALCIUM 9.2 mg/dl (8.4-10.2); CREATININE 0.67 mg/dl (0.44-1.00); POTASSIUM 4.4 mmol/L (3.5-5.1)
[2016-08-28 05:59] LABS: TOTAL IRON BINDING CAPACITY 450 ug/dl (241-421)
[2016-08-28 06:26] LABS: FERRITIN 14.6 ng/ml (11.1-264.0)
[2016-08-28 07:00] VITALS: BP 107/82; RESP 20
[2016-08-28] MEDS: FERROUS SULFATE (EC) 325 MG TAB PO SCH (09:18)
[2016-08-28] MEDS: NORETHINDRONE 5 MG TAB PO SCH (09:19)
[2016-08-28] MEDS: FAMOTIDINE 20 MG TAB PO SCH (09:19)
--- NOTE | 2016-08-28 10:30 | PDOCDIS ---
Discharge Instructions CONDITION Patient Condition: Good HOME CARE INSTRUCTIONS: Diet Instructions: Regular ACTIVITY: Activity Restrictions: Slowly Increase Activity No Sexual Activity Avoid Heavy Housework Bathing Restrictions: Tub Bath FOLLOW UP/APPOINTMENTS Appointments Follow-up with DECISION SCIENCE ANALYST as outpatient Follow up with primary care physician as outpatient DANAE GE MD August 28, 2016 10:30
[2016-08-28] MEDS ORDERED: FER325 PO (10:34)
[2016-08-28] MEDS ORDERED: LEVO500T72 PO (10:34)
[2016-08-28] MEDS ORDERED: ASC500 PO (10:34)
[2016-08-28] MEDS ORDERED: DOCU-216 PO (10:34)
[2016-08-28] MEDS: ACETAMINOPHEN 325 MG TAB PO PRN (10:38)
--- NOTE | 2016-08-28 11:06 | DS ---
DATE OF ADMISSION: 08/25/2016 DATE OF DISCHARGE: 08/28/2016 CONSULTANTS: 1. Sydnie Nieto MD 2. Ke Hodges MD PROCEDURE: D and C. DISCHARGE DIAGNOSES: 1. Symptomatic anemia due to acute on chronic anemia due to long-term menorrhagia. 2. Menometrorrhagia. 3. Submucosal fibroid with prominent displacement of the endometrium. MEDICATIONS: 1. Levaquin 500 mg 2. Colace 100 mg. 3. Ferrous sulfate 325 mg. 4. Vitamin C 500 mg. 5. Tramadol 50 mg. ALLERGIES: NO KNOWN DRUG ALLERGIES. HOSPITAL COURSE: This is a 51-year-old female with past medical history of anemia who presented to [facility] emergency room for acute anemia and diagnosed with low hemoglobin and hematocrit , which was diagnosed at the primary care office. The patient denies having any GI bleed, but has b een having vaginal bleed that has been going on for a while for the past 2 to 3 months. The patient had a pelvic ultrasound which demonstrated a large 6.1 cm submucosal fibroid with prominent displac ement of the endometrium. Trace endocervical fluid is likely hemorrhagic given the reported history . A 3.1 cm complex cystic lesion in the left ovary may be hemorrhagic corpus luteal cyst. GENERAL MERCHANDISE SALESPERSON w as consulted. The patient's hemoglobin at the time of admission was 5.3 and hematocrit 19.6. She w as typed and crossed and was transfused 2 units of packed red blood cells. Hemoglobin and hematocri t have been improving. The patient was seen and evaluated by GENERAL MERCHANDISE SALESPERSON and after evaluation of the alisha ging and discussing the care with the patient, it was decided to proceed with a D and C. After sign ing the consent, the patient was taken to OR for D and C. The patient tolerated the procedure well. This morning, patient's WBC is 12.3, hemoglobin 9.3, hematocrit 31.0, platelets 327. Sodium 138, potassium 4.4, chloride 108, bicarbonate 23, BUN 11, creatinine 0.67, glucose 120, calcium 9.2. Tot al iron 27, TIBC 450, iron saturation 6, ferritin 14.6. CA 19-9 is 2.0. CA 125 is 10.4 After discu ssing the discharge with GENERAL MERCHANDISE SALESPERSON, as per GENERAL MERCHANDISE SALESPERSON at this time the patient is stable for discharge. Fr om a medical standpoint, the patient is also stable for discharge. Her vitals: Temperature 98.2, p ulse 75, respiration rate 20, blood pressure 107/82, oxygen 99 to 95% in room air. CONDITION AT TIME OF DISCHARGE: Stable. DIET: Regular diet. ACTIVITY: Light activity x2 weeks. Dictated By: DANAE PAULA/NTS Conf#: [id number] DID#: [id number]
== END 2016-08-28 10:55 | disposition home or self-care (01) | DRG 989 ==
LOC: E/R 13:02 → MS1 19:53
PROVIDERS: ADMIT Family Medicine; ATTEND Family Medicine
PROC: 30233N1 Transfusion of Nonautologous Red Blood Cells into Peripheral Vein, Percutaneous Approach (ICD-10-PCS; principal; 2016-08-25)
PROC: 0UDB7ZX Extraction of Endometrium, Via Natural or Artificial Opening, Diagnostic (ICD-10-PCS; 2016-08-27)
DX: D50.0 Iron deficiency anemia secondary to blood loss (chronic) (principal); D25.0 Submucous leiomyoma of uterus; N83.12 Corpus luteum cyst of left ovary; N92.1 Excessive and frequent menstruation with irregular cycle
CPT/HCPCS: 36415; 36430; 76856; 80048; 80053; 81001; 81003; 82728; 83540; 83735; 84100; 84439; 84443; 84484; 85025; 85610; 85730; 86301; 86304; 86850; 86900; 86901; 86920; 88305; 93005; 96374; J1100; J1885; J2250; J2405; J2765; J3010; J7030; P9016

== ENCOUNTER 2016-09-08 06:08 | Emergency (ER) | payer BC ==
[~2016-09-08] VITALS: Ht 157.5 cm; Wt 93.5 kg
[~2016-09-08 06:08] MED LIST changes: +ASC500 PO; +DOCU-216 PO; +FER325 PO; -FERR-49 PO; -GABA-526 PO; +LEVO500T72 PO
[2016-09-08 06:21] VITALS: Ht 157.5 cm; Wt 93.5 kg
[2016-09-08 07:13] LABS: URINE BLOOD (Dip) POC Trace-lysed (NEGATIVE)
[2016-09-08 07:27] LABS: ADD SCAN DIFF NO
[2016-09-08 07:29] LABS: ABNORMAL IP MESSAGE 1; BASOPHIL # 0.1 10^3/ul (0.0-0.1); BASOPHILS % 0.6 % (0.0-2.0); EOSINOPHILS # 0.2 10^3/ul (0.0-0.5); EOSINOPHILS % 2.1 % (0.0-7.0); HEMATOCRIT 31.1 % (37.0-47.0); HEMOGLOBIN 9.5 g/dl (12.0-16.0); LYMPHOCYTES # 2.1 10^3/ul (0.8-2.9); LYMPHOCYTES % 23.1 % (15.0-51.0); MEAN CORPUSCULAR HEMOGLOBIN 25.2 pg (29.0-33.0); MEAN CORPUSCULAR HGB CONC 30.5 g/dl (32.0-37.0); MEAN CORPUSCULAR VOLUME 82.5 fl (82.0-101.0); MEAN PLATELET VOLUME 11.6 fl (7.4-10.4); MONOCYTE # 0.7 10^3/ul (0.3-0.9); MONOCYTES % 7.3 % (0.0-11.0); NEUTROPHILS % 66.3 % (39.0-77.0); PLATELET COUNT 322 10^3/UL (140-415); RED BLOOD COUNT 3.77 10^6/ul (4.20-5.40); RED CELL DISTRIBUTION WIDTH 22.8 % (11.5-14.5)
--- NOTE | 2016-09-08 07:48 | RADRPT ---
PROCEDURE: US Pelvis CLINICAL INDICATION: Pelvic pain TECHNIQUE: Transabdominal and transvaginal sonographic evaluation of the pelvis was performed. COMPARISON: Ultrasound from 08/25/2016. FINDINGS: Myometrium is heterogeneous in echotexture an enlarged fibroid measuring 5.6 cm. Endometrium is normal in thickness without a focal abnormality. Normal flow to both ovaries. No adnexal mass. There is a 3.4 cm left ovarian cyst. No free pelvic fluid is demonstrated. MEASUREMENTS: Uterus: 12.6 x 7.4 x 8.4 cm, anteverted Endometrium: 0.9 cm Right ovary size: 4.8 x 2.4 x 3.8 cm Left ovary size: 4.4 x 3.0 x 3.7 cm IMPRESSION: Enlarged fibroid uterus. No significant blood products seen within the endometrium. Simple ovarian cyst seen in the left ovary, not significantly changed from prior study. RPTAT:PP .Camron Boston MD, Date Time Electronically viewed and signed by .Camron Boston MD, on 09/08/2016 07:48 .V/
[2016-09-08 07:49] LABS: ALBUMIN/GLOBULIN RATIO 1.17; BILIRUBIN,INDIRECT 0.3 mg/dl (0-1.1); BILIRUBIN,TOTAL 0.3 mg/dl (0.2-1.3); CREATININE 0.65 mg/dl (0.44-1.00); POTASSIUM 3.8 mmol/L (3.5-5.1); TOTAL PROTEIN 7.4 g/dl (6.1-8.1)
--- NOTE | 2016-09-08 08:00 | ERD ---
ER Documentation Chief Complaint Date/Time DATE: 09/08/16 TIME: 07:59 Chief Complaint vaginal bleeding x 1 week, also c/o pelvic pain. denies vb during intake. ZULEMA Is a 51-year-old female who presents to the emergency department today complaining of vaginal bleeding. Patient states she had had vaginal bleeding for quite some time and was seen here couple weeks ago and stayed here in the hospital and had "surgery". States that she was told to come back here if she had bleeding again. States that she does have some lower pelvic pain. States that the day after she left here she started bleeding again and has had some light bleeding ever since. Denies any bleeding currently but had some yesterday.States she has not followed up with a primary care doctor or EDUCATION AND DEVELOPMENT MANAGER specialist. Denies any fevers or chills, dizziness. ROS All systems reviewed and are negative except as per history of present illness. Medications Home Meds Active Scripts Polyethylene Glycol* (Miralax*) 17 Gm Powd.pack, 17 GM PO DAILY, #30 Prov:DANITA TARANGO PA-C 09/08/16 Ferrous Sulfate* (Ferrous Sulfate*) 325 Mg Tabec, 325 MG PO BID, #100 TAB Prov:DANITA TARANGO PA-C 09/08/16 Ascorbic Acid (Vitamin C) 500 Mg Tab, 500 MG PO DAILY, #30 TAB Prov:DANAE GE MD 08/28/16 Ferrous Sulfate* (Ferrous Sulfate*) 325 Mg Tabec, 325 MG PO BID, #60 TAB Prov:DANAE GE MD 08/28/16 Docusate Sodium (Dok) 100 Mg Capsule, 100 MG PO DAILY Y for CONSTIPATION, #14 CAP Prov:DANAE GE MD 08/28/16 Levofloxacin* (Levaquin*) 500 Mg Tablet, 500 MG PO DAILY, #7 TAB Prov:DANAE GE MD 08/28/16 Reported Medications Tramadol Hcl* (Ultram*) 50 Mg Tablet, 100 MG PO Q8, TAB 08/29/15 Allergies Allergies: Coded Allergies: No Known Allergy (Unverified , 09/08/16) PMhx/Soc Medical and Surgical Hx: pt denies Medical Hx History of Surgery: Yes ( x3) Anesthesia Reaction: No Hx Neurological Disorder: No Hx Respiratory Disorders: No Hx Cardiac Disorders: No Hx Psychiatric Problems: No Hx Miscellaneous Medical Probl: No Hx Alcohol Use: No Hx Substance Use: No Hx Tobacco Use: No Smoking Status: Never smoker Physical Exam Vitals Vital Signs Date Time Temp Pulse Resp B/P Pulse Ox O2 Delivery O2 Flow Rate FiO2 09/08/16 10:07 97.1 62 18 113/65 100 Room Air 09/08/16 06:21 98.3 92 20 131/66 100 Physical Exam Const: No acute distress Head: Atraumatic Eyes: Normal Conjunctiva ENT: Normal External Ears, Nose and Mouth. Neck: Full range of motion..~ No meningismus. Resp: Clear to auscultation bilaterally Cardio: Regular rate and rhythm, no murmurs Abd: Soft, mild suprapubic tenderness non distended. Normal bowel sounds. No right lower quadrant pain. No tenderness McBurney's. Skin: No petechiae or rashes Neur: Awake and alert Psych: Normal Mood and Affect Result Diagram: 09/08/16 0720 09/08/16 0720 Results 24 hrs Laboratory Tests Test 09/08/16 07:15 09/08/16 07:20 Bedside Urine pH (LAB) 5.5 Bedside Urine Protein (LAB) Negative Bedside Urine Glucose (UA) Negative Bedside Urine Ketones (LAB) Negative Bedside Urine Blood Trace-lysed Bedside Urine Nitrite (LAB) Negative Bedside Urine Leukocyte Esterase (L Negative White Blood Count 9.010^3/ul Red Blood Count 3.7710^6/ul Hemoglobin 9.5g/dl Hematocrit 31.1% Mean Corpuscular Volume 82.5fl Mean Corpuscular Hemoglobin 25.2pg Mean Corpuscular Hemoglobin Concent 30.5g/dl Red Cell Distribution Width 22.8% Platelet Count 60743^3/UL Mean Platelet Volume 11.6fl Neutrophils % 66.3% Lymphocytes % 23.1% Monocytes % 7.3% Eosinophils % 2.1% Basophils % 0.6% Nucleated Red Blood Cells % 0.0/100WBC Neutrophils # 6.010^3/ul Lymphocytes # 2.110^3/ul Monocytes # 0.710^3/ul Eosinophils # 0.210^3/ul Basophils # 0.110^3/ul Nucleated Red Blood Cells # 0.010^3/ul Sodium Level 138mmol/L Potassium Level 3.8mmol/L Chloride Level 104mmol/L Carbon Dioxide Level 26mmol/L Anion Gap 12 Blood Urea Nitrogen 13mg/dl Creatinine 0.65mg/dl Glucose Level 90mg/dl Calcium Level 9.0mg/dl Total Bilirubin 0.3mg/dl Direct Bilirubin 0.00mg/dl Indirect Bilirubin 0.3mg/dl Aspartate Amino Transf (AST/SGOT) 16IU/L Alanine Aminotransferase (ALT/SGPT) 23IU/L Alkaline Phosphatase 79IU/L Total Protein 7.4g/dl Albumin 4.0g/dl Globulin 3.40g/dl Albumin/Globulin Ratio 1.17 Current Medications Medications (Trade) Dose Ordered Sig/Andrés Route PRN Reason Start Time Stop Time Status Last Admin Dose Admin Acetaminophen (Tylenol Tab) 500 mg ONCE STAT PO 09/08/16 08:25 09/08/16 08:26 DC DIAGNOSTIC IMAGING REPORT Patient: ABY QUINTERO : 1965 Age: 51 Sex: F MR #: [id number] DOS: 09/08/16 0000 Ordering MD: DANITA TARANGO PA-C Location: [facility] Room/Bed: PROCEDURE: US Pelvis CLINICAL INDICATION: Pelvic pain TECHNIQUE: Transabdominal and transvaginal sonographic evaluation of the pelvis was performed. COMPARISON: Ultrasound from 08/25/2016. FINDINGS: Myometrium is heterogeneous in echotexture an enlarged fibroid measuring 5.6 cm. Endometrium is normal in thickness without a focal abnormality. Normal flow to both ovaries. No adnexal mass. There is a 3.4 cm left ovarian cyst. No free pelvic fluid is demonstrated. MEASUREMENTS: Uterus: 12.6 x 7.4 x 8.4 cm, anteverted Endometrium: 0.9 cm Right ovary size: 4.8 x 2.4 x 3.8 cm Left ovary size: 4.4 x 3.0 x 3.7 cm IMPRESSION: Enlarged fibroid uterus. No significant blood products seen within the endometrium. Simple ovarian cyst seen in the left ovary, not significantly changed from prior study. RPTAT:PP .Camron Boston MD, MD Date Time Electronically viewed and signed by .Camron Boston MD, MD on 09/08/2016 07:48 .V/ CC: DANITA TARANGO-C Procedures/MDM This is a 51-year-old female who presents to the emergency department today complaining of vaginal bleeding that has been ongoing for several years and worsened over the past couple of months. Upon review of patient's medical records patient was seen here on August 25, 2016 after being referred by her doctor for a low H&H. Patient had a complete workup at that time and her hemoglobin at that time was 5.3. Patient was transfused with blood and admitted to the hospital for approximately 5 days. On August 27 patient had a D&C as patient had fibroids on her pelvic ultrasound at that time. There was some discussion as to hysterectomy however patient had declined at this time. I did repeat laboratory work as well as an ultrasound today given patient's complaint of persistent vaginal bleeding. Laboratory work shows no elevated white blood cell count. Her hemoglobin is 9.5 and her hematocrit is 31.1. Platelets are within normal limits. Electrolytes are within normal limits. Glucose within normal limits. Liver functions within normal limits. UA is negative for infection. test is negative. Ultrasound shows an enlarged fibroid measuring 5.6 cm. There is no significant blood products seen within the endometrium. There is normal flow to both ovaries. There is no adnexal mass. There is a 3.4 cm left ovarian cyst. There is no free pelvic fluid. Patient does not require transfusion at this time. I did place a call to the laborist investigation lieutenant , kaylynn Braga who also did the patient's D&C on August 27 he agreed to see the patient here in the emergency department. There was discussion with the patient about outpatient follow-up and referral to an OB/ KNOWLEDGE ANALYST specialist. Dr. Guy clearly gave the patient instructions on who to call and where to go. He did request that I give the patient a prescription for iron. I did give the patient prescription for iron as well as MiraLAX to the patient had any problems with constipation. Patient is afebrile and otherwise well-appearing. Low suspicion for severe anemia that requires transfusion, acute surgical abdomen. Patient symptoms at this time is consistent with anemia and vaginal bleeding secondary to menometrorrhagia and endometrial myoma and fibroid. She was given Tylenol for pain. At this time the patient is stable for discharge and outpatient management. Patient should follow up with their PCP in the next 1-2 days. They may return to the emergency department sooner for any persistent or worsening of symptoms. Patient understood and agreed with the plan. Discussed the patient with Rakesh and he is in agreement with the plan Departure Diagnosis: Primary Impression: Vaginal bleeding Condition: DANITA Haq PA-C September 08, 2016 08:00
[2016-09-08] MEDS ORDERED: ACETAMINOPHEN 500 MG TAB PO STA (08:25)
[2016-09-08] MEDS ORDERED: FER325 PO (09:54)
[2016-09-08] MEDS ORDERED: POLY17PO6 PO (09:55)
[2016-09-08 10:07] VITALS: BP 113/65; PULSE 62; RESP 18; TEMP 97.1
--- NOTE | 2016-09-08 13:48 | CONS ---
Date/Time of Note Date/Time of Note DATE: 09/08/16 TIME: 13:41 Consultation Date/Type/Reason Admit Date/Time September 08, 2016 Emergency room consult Initial Consult Date Reason for Consultation This patient was seen in ER last week due to vaginal bleeding, severe anemia, fibroid tumor and ovarian cyst. Was discharged home and again returned today. She is a 51 years old 3 para 3 who came to the hospital last week due to prolonged period of vaginal bleeding and the resulting sever anemia . 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 She came to this hospital due to vaginal bleeding and severe secondary anemia with Hb of 5.3. Received 4 units of packed. call .she again did not accept to have a D&C Today she is again here ;her bleeding slowed down, she now is interested to have a surgery On examination her findings are unchanged however bleeding is very scanty. Laboratory Tests Test 09/08/16 07:15 09/08/16 07:20 Bedside Urine pH (LAB) 5.5 Bedside Urine Protein (LAB) Negative Bedside Urine Glucose (UA) Negative Bedside Urine Ketones (LAB) Negative Bedside Urine Blood Trace-lysed Bedside Urine Nitrite (LAB) Negative Bedside Urine Leukocyte Esterase (L Negative White Blood Count 9.010^3/ul Red Blood Count 3.7710^6/ul Hemoglobin 9.5g/dl Hematocrit 31.1% Mean Corpuscular Volume 82.5fl Mean Corpuscular Hemoglobin 25.2pg Mean Corpuscular Hemoglobin Concent 30.5g/dl Red Cell Distribution Width 22.8% Platelet Count 12106^3/UL Mean Platelet Volume 11.6fl Neutrophils % 66.3% Lymphocytes % 23.1% Monocytes % 7.3% Eosinophils % 2.1% Basophils % 0.6% Nucleated Red Blood Cells % 0.0/100WBC Neutrophils # 6.010^3/ul Lymphocytes # 2.110^3/ul Monocytes # 0.710^3/ul Eosinophils # 0.210^3/ul Basophils # 0.110^3/ul Nucleated Red Blood Cells # 0.010^3/ul Sodium Level 138mmol/L Potassium Level 3.8mmol/L Chloride Level 104mmol/L Carbon Dioxide Level 26mmol/L Anion Gap 12 Blood Urea Nitrogen 13mg/dl Creatinine 0.65mg/dl Glucose Level 90mg/dl Calcium Level 9.0mg/dl Total Bilirubin 0.3mg/dl Direct Bilirubin 0.00mg/dl Indirect Bilirubin 0.3mg/dl Aspartate Amino Transf (AST/SGOT) 16IU/L Alanine Aminotransferase (ALT/SGPT) 23IU/L Alkaline Phosphatase 79IU/L Total Protein 7.4g/dl Albumin 4.0g/dl Globulin 3.40g/dl Albumin/Globulin Ratio 1.17 Current Medications Medications (Trade) Dose Ordered Sig/Andrés Route PRN Reason Start Time Stop Time Status Last Admin Dose Admin Acetaminophen (Tylenol Tab) 500 mg ONCE STAT PO 09/08/16 08:25 09/08/16 08:26 DC . 24 HR Interval Summary Free Text/Dictation Due to her condition I explained in detail to her and her that she would need to to continue her iron pill due to her anemia and the lack of reserve for a while to build up the better hemoglobin Meanwhile if she has any bleeding I gave her prescription a prescription for norethindrone acetate 5 mg tablet to be taken daily to reduce the possibility of vaginal bleeding. Also I gave her prescription for ferrous sulfate to be taken twice a day 325 mg We will see her within a few weeks if she is interested to have surgery we will discuss with her then Constitutional: No chills, No diaphoresis, No disoriented, No febrile, No improved, No no complaints, No other, No poor po, No requiring IVF, No requiring O2 Detailed Summary Eyes: No discharge, No no complaints, No other, No pain, No redness, No visual change ENT: No bleeding, No congestion, No discharge, No dysphagia, No no complaints, No other, No pain, No sore throat Respiratory: No cough, No no complaints, No other, No pain, No pleuritic pain, No shortness of breath, No sputum, No wheezing Cardiovascular: No chest pain, No edema, No lightheadedness, No no complaints, No orthopenea, No other, No palpitations, No paroxysmal nocturnal dyspnea Gastrointestinal: No blood, No constipation, No decreased appetite, No diarrhea , No flatus, No nausea, No no complaints, No other, No pain, No passing stool, No vomiting Genitourinary: other (As I mentioned she has a uterine fibroid about 7 x 8 cm and ovarian cyst of about 3 cm), No bleeding, No discharge, No dysuria, No flank pain, No hematuria, No no complaints Musculoskeletal: No back pain, No bone/joint pain, No neck pain, No no complaints, No other, No restricted range of motion, No swelling Skin: No bruising, No erythema, No laceration, No no complaints, No other, No pruritis, No rash, No skin lesions Neurologic: No confusion, No dizziness, No focal-weakness, No headache, No no complaints, No other, No seizure, No syncope Additional Comments We will see her later when her hemoglobin comes up and most likely will do surgery which would be WOOD/BSO and removal removal of ovarian cyst as well Exam/Review of Systems Vital Signs Vitals Vital Signs Date Time Temp Pulse Resp B/P Pulse Ox O2 Delivery O2 Flow Rate FiO2 09/08/16 10:07 97.1 62 18 113/65 100 Room Air Results Result Diagram: 09/08/16 0720 09/08/16 0720 Results 24 hrs Laboratory Tests Test 09/08/16 07:15 09/08/16 07:20 Bedside Urine pH (LAB) 5.5 Bedside Urine Protein (LAB) Negative Bedside Urine Glucose (UA) Negative Bedside Urine Ketones (LAB) Negative Bedside Urine Blood Trace-lysed H Bedside Urine Nitrite (LAB) Negative Bedside Urine Leukocyte Esterase (L Negative White Blood Count 9.0 # Red Blood Count 3.77 L Hemoglobin 9.5 L Hematocrit 31.1 L Mean Corpuscular Volume 82.5 Mean Corpuscular Hemoglobin 25.2 L Mean Corpuscular Hemoglobin Concent 30.5 L Red Cell Distribution Width 22.8 H Platelet Count 322 Mean Platelet Volume 11.6 H Neutrophils % 66.3 Lymphocytes % 23.1 Monocytes % 7.3 Eosinophils % 2.1 Basophils % 0.6 Nucleated Red Blood Cells % 0.0 Neutrophils # 6.0 Lymphocytes # 2.1 Monocytes # 0.7 Eosinophils # 0.2 Basophils # 0.1 Nucleated Red Blood Cells # 0.0 Sodium Level 138 Potassium Level 3.8 Chloride Level 104 Carbon Dioxide Level 26 Anion Gap 12 Blood Urea Nitrogen 13 Creatinine 0.65 Glucose Level 90 Calcium Level 9.0 Total Bilirubin 0.3 Direct Bilirubin 0.00 Indirect Bilirubin 0.3 Aspartate Amino Transf (AST/SGOT) 16 Alanine Aminotransferase (ALT/SGPT) 23 Alkaline Phosphatase 79 Total Protein 7.4 Albumin 4.0 Globulin 3.40 H Albumin/Globulin Ratio 1.17 KANDIS ALANIS MD September 08, 2016 13:48 Aspartate Amino Transf (AST/SGOT) 16 Alanine Aminotransferase (ALT/SGPT) 23 Alkaline Phosphatase 79 Total Protein 7.4 Albumin 4.0 Globulin 3.40 H Albumin/Globulin Ratio 1.17 KANDIS ALANIS MD September 08, 2016 13:48
== END 2016-09-08 10:21 | disposition home or self-care (01) ==
LOC: FTE 06:08
DX: N93.9 Abnormal uterine and vaginal bleeding, unspecified (principal); R10.2 Pelvic and perineal pain
CPT/HCPCS: 76856; 80053; 81003; 85025; Z7502

== ENCOUNTER 2016-09-28 12:14 | Emergency (ER) | payer BC ==
[~2016-09-28] VITALS: Ht 152.4 cm; Wt 90.9 kg
[~2016-09-28 12:14] MED LIST changes: +POLY17PO6 PO
[2016-09-28 12:23] VITALS: Ht 152.4 cm; Wt 90.9 kg
[2016-09-28] MEDS ORDERED: ONDANSETRON 4 MG INJ IV STA (12:41)
[2016-09-28 12:51] LABS: ADD SCAN DIFF NO
[2016-09-28 12:54] LABS: BASOPHILS % 0.4 % (0.0-2.0); EOSINOPHILS # 0.2 10^3/ul (0.0-0.5); HEMATOCRIT 27.6 % (37.0-47.0); HEMOGLOBIN 8.3 g/dl (12.0-16.0); LYMPHOCYTES # 2.2 10^3/ul (0.8-2.9); LYMPHOCYTES % 23.4 % (15.0-51.0); MEAN CORPUSCULAR HEMOGLOBIN 25.6 pg (29.0-33.0); MEAN CORPUSCULAR HGB CONC 30.1 g/dl (32.0-37.0); MEAN CORPUSCULAR VOLUME 85.2 fl (82.0-101.0); MONOCYTE # 0.6 10^3/ul (0.3-0.9); NEUTROPHIL # 6.2 10^3/ul (1.6-7.5); NEUTROPHILS % 67.9 % (39.0-77.0); PLATELET COUNT 274 10^3/UL (140-415); RED BLOOD COUNT 3.24 10^6/ul (4.20-5.40); RED CELL DISTRIBUTION WIDTH 21.2 % (11.5-14.5); WHITE BLOOD COUNT 9.2 10^3/ul (4.8-10.8)
[2016-09-28] MEDS ORDERED: morphine 2 MG INJ IV ONE (13:00)
[2016-09-28] MEDS ORDERED: SOD CHLORIDE 0.9% 1,000 ML IV ONE ×2 (13:00→14:30)
[2016-09-28 13:04] LABS: URINE BLOOD (Dip) POC 2+ (NEGATIVE)
[2016-09-28 13:16] LABS: ALBUMIN 4.4 g/dl (3.3-4.9); ALBUMIN/GLOBULIN RATIO 1.69; BILIRUBIN,INDIRECT 0.1 mg/dl (0-1.1); BILIRUBIN,TOTAL 0.1 mg/dl (0.2-1.3); CREATININE 0.81 mg/dl (0.44-1.00); POTASSIUM 3.9 mmol/L (3.5-5.1)
--- NOTE | 2016-09-28 13:47 | ERA ---
ER Documentation Chief Complaint Date/Time DATE: 09/28/16 TIME: 13:46 Chief Complaint VAGINAL BLEEDING WITH PELVIC PAIN , NAUSEA AND VOMITING HPI The patient is a 51-year-old female, presenting to the ER because of recurrent vaginal bleeding about an hour prior to arrival, mostly clots. She was in the ER about 2 weeks ago and was found to have 5.6 cm fibroid. He is awaiting to be seen by her mechanical engineer Dr. Harrison for fibroid surgery. She complains of minimal pelvic pain, denies fever, syncope, near syncope, neck pain, chest pain , abdominal pain, vomiting, dysuria, diarrhea. He does not smoke nor drink Past medical history: Fibroid Past medical history: 3 ROS All systems reviewed and are negative except as per history of present illness. Medications Home Meds Discontinued Reported Medications Tramadol Hcl* (Ultram*) 50 Mg Tablet, 100 MG PO Q8, TAB 08/29/15 Discontinued Scripts Polyethylene Glycol* (Miralax*) 17 Gm Powd.pack, 17 GM PO DAILY, #30 Prov:DANITA TARANGO PA-C 09/08/16 Ferrous Sulfate* (Ferrous Sulfate*) 325 Mg Tabec, 325 MG PO BID, #100 TAB Prov:DANITA TARANGO PA-C 09/08/16 Ascorbic Acid (Vitamin C) 500 Mg Tab, 500 MG PO DAILY, #30 TAB Prov:DANAE GE MD 08/28/16 Ferrous Sulfate* (Ferrous Sulfate*) 325 Mg Tabec, 325 MG PO BID, #60 TAB Prov:DANAE GE MD 08/28/16 Docusate Sodium (Dok) 100 Mg Capsule, 100 MG PO DAILY Y for CONSTIPATION, #14 CAP Prov:DANAE GE MD 08/28/16 Levofloxacin* (Levaquin*) 500 Mg Tablet, 500 MG PO DAILY, #7 TAB Prov:DANAE GE MD 08/28/16 Allergies Allergies: Coded Allergies: No Known Allergy (Unverified , 09/28/16) PMhx/Soc History of Surgery: Yes ( x3 , DILATATION AND CURETTEGE ) Anesthesia Reaction: No Hx Neurological Disorder: No Hx Respiratory Disorders: No Hx Cardiac Disorders: No Hx Psychiatric Problems: No Hx Miscellaneous Medical Probl: Yes (UTERINE FIBROIDS ) Hx Alcohol Use: No Hx Substance Use: No Hx Tobacco Use: No Smoking Status: Never smoker Physical Exam Vitals Vital Signs Date Time Temp Pulse Resp B/P Pulse Ox O2 Delivery O2 Flow Rate FiO2 09/28/16 13:45 82 20 117/64 99 Room Air 09/28/16 12:23 98.8 74 18 122/61 99 Physical Exam Const: No acute distress. Head: Atraumatic. Eyes: Normal Conjunctiva. ENT: Normal External Ears, Nose and Mouth. Neck: Full range of motion. No meningismus. Resp: Clear to auscultation bilaterally. Cardio: Regular rate and rhythm. Abd: Soft, non distended, normal bowel sounds, minimal suprapubic discomfort, no right lower quadrant, right upper quadrant, epigastric, CVA tenderness Skin: No petechiae or rashes. Back: No midline or flank tenderness. Ext: No cyanosis, or edema. Neur: Awake and alert. No focal deficit Psych: Normal Mood and Affect. Result Diagram: 09/28/16 1245 09/28/16 1245 Results 24 hrs Laboratory Tests Test 09/28/16 12:45 09/28/16 13:07 White Blood Count 9.210^3/ul Red Blood Count 3.2410^6/ul Hemoglobin 8.3g/dl Hematocrit 27.6% Mean Corpuscular Volume 85.2fl Mean Corpuscular Hemoglobin 25.6pg Mean Corpuscular Hemoglobin Concent 30.1g/dl Red Cell Distribution Width 21.2% Platelet Count 33024^3/UL Mean Platelet Volume 11.0fl Neutrophils % 67.9% Lymphocytes % 23.4% Monocytes % 6.0% Eosinophils % 2.0% Basophils % 0.4% Nucleated Red Blood Cells % 0.0/100WBC Neutrophils # 6.210^3/ul Lymphocytes # 2.210^3/ul Monocytes # 0.610^3/ul Eosinophils # 0.210^3/ul Basophils # 0.010^3/ul Nucleated Red Blood Cells # 0.010^3/ul Sodium Level 138mmol/L Potassium Level 3.9mmol/L Chloride Level 105mmol/L Carbon Dioxide Level 25mmol/L Anion Gap 12 Blood Urea Nitrogen 13mg/dl Creatinine 0.81mg/dl Glucose Level 89mg/dl Calcium Level 9.0mg/dl Total Bilirubin 0.1mg/dl Direct Bilirubin 0.00mg/dl Indirect Bilirubin 0.1mg/dl Aspartate Amino Transf (AST/SGOT) 14IU/L Alanine Aminotransferase (ALT/SGPT) 24IU/L Alkaline Phosphatase 76IU/L Total Protein 7.0g/dl Albumin 4.4g/dl Globulin 2.60g/dl Albumin/Globulin Ratio 1.69 Lipase 51U/L Bedside Urine pH (LAB) 7.0 Bedside Urine Protein (LAB) 1+ Bedside Urine Glucose (UA) Negative Bedside Urine Ketones (LAB) Negative Bedside Urine Blood 2+ Bedside Urine Nitrite (LAB) Negative Bedside Urine Leukocyte Esterase (L Negative Current Medications Medications (Trade) Dose Ordered Sig/Andrés Route PRN Reason Start Time Stop Time Status Last Admin Dose Admin Sodium Chloride (NS) 1,000 ml @ 1,000 mls/hr Q1H ONCE IV 09/28/16 13:00 09/28/16 13:59 09/28/16 12:51 Morphine Sulfate (morphine) 2 mg ONCE ONCE IV 09/28/16 13:00 09/28/16 13:01 DC 09/28/16 12:51 Ondansetron HCl (Zofran Inj) 4 mg ONCE STAT IV 09/28/16 12:41 09/28/16 12:43 DC 09/28/16 12:51 Procedures/MDM MEDICAL MAKING DECISION: The patient is a 51-year-old female, presenting to the ER because of acute recurrent vaginal bleeding due to fibroid, and worsening anemia. She was treated with 1 L normal saline for clinical dehydration, morphine 2 mg IV for pain, Zofran 4 IV for now some with good response The differential diagnoses considered include but are not limited to PID, ovarian cyst, endometriosis, fibroids, appendicitis, ovarian torsion. Consultation: I discussed the patient with the on-call mechanical engineer Dr. Hodges , who saw her last week as well. He was made aware of the lab, the treatment, the patient condition he would come down to the ER to evaluate patient Departure Diagnosis: Primary Impression: Vaginal bleeding Additional Impressions: Fibroid Anemia Condition: Stable Comments The patient is awaiting for mechanical engineer evaluation and disposition KAMARI VANEGAS MD Sep 28, 2016 13:47
[2016-09-28] MEDS ORDERED: KETOROLAC 30 MG INJ IV STA (14:11)
[2016-09-28 14:55] VITALS: TEMP 98.2
[2016-09-28] MEDS ORDERED: HYDR-906 PO (15:54)
[2016-09-28 16:03] VITALS: BP 117/72; PULSE 72; RESP 20
--- NOTE | 2016-09-28 16:24 | EN ---
Date/Time of Note Date/Time of Note DATE: 09/28/16 TIME: 16:18 ER Progress Note September 28, 2016 Emergency room consult She is a 51 years old 3 para 3 who came to the hospital last week due to prolonged period and vaginal bleeding and the resulting sever anemia . 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 She came to this hospital due to vaginal bleeding and severe secondary anemia with Hb of 5.3. Received 4 units of packed. call .she again did not accept to have a D&C Today she is again here ;her bleeding slowed down, she now is interested to have a surgery Today she came to the emergency room again complaining of vaginal bleeding and requesting to have a hysterectomy . Laboratory Tests Test 09/28/16 12:45 09/28/16 13:07 White Blood Count 9.210^3/ul Red Blood Count 3.2410^6/ul Hemoglobin 8.3g/dl Hematocrit 27.6% Mean Corpuscular Volume 85.2fl Mean Corpuscular Hemoglobin 25.6pg Mean Corpuscular Hemoglobin Concent 30.1g/dl Red Cell Distribution Width 21.2% Platelet Count 00672^3/UL Mean Platelet Volume 11.0fl Neutrophils % 67.9% Lymphocytes % 23.4% Monocytes % 6.0% Eosinophils % 2.0% Basophils % 0.4% Nucleated Red Blood Cells % 0.0/100WBC Neutrophils # 6.210^3/ul Lymphocytes # 2.210^3/ul Monocytes # 0.610^3/ul Eosinophils # 0.210^3/ul Basophils # 0.010^3/ul Nucleated Red Blood Cells # 0.010^3/ul Sodium Level 138mmol/L Potassium Level 3.9mmol/L Chloride Level 105mmol/L Carbon Dioxide Level 25mmol/L Anion Gap 12 Blood Urea Nitrogen 13mg/dl Creatinine 0.81mg/dl Glucose Level 89mg/dl Calcium Level 9.0mg/dl Total Bilirubin 0.1mg/dl Direct Bilirubin 0.00mg/dl Indirect Bilirubin 0.1mg/dl Aspartate Amino Transf (AST/SGOT) 14IU/L Alanine Aminotransferase (ALT/SGPT) 24IU/L Alkaline Phosphatase 76IU/L Total Protein 7.0g/dl Albumin 4.4g/dl Globulin 2.60g/dl Albumin/Globulin Ratio 1.69 Lipase 51U/L Bedside Urine pH (LAB) 7.0 Bedside Urine Protein (LAB) 1+ Bedside Urine Glucose (UA) Negative Bedside Urine Ketones (LAB) Negative Bedside Urine Blood 2+ Bedside Urine Nitrite (LAB) Negative Bedside Urine Leukocyte Esterase (L Negative Current Medications Medications (Trade) Dose Ordered Sig/Andrés Route PRN Reason Start Time Stop Time Status Last Admin Dose Admin Sodium Chloride (NS) 1,000 ml @ 1,000 mls/hr Q1H ONCE IV 09/28/16 13:00 09/28/16 13:59 DC 09/28/16 12:51 Morphine Sulfate (morphine) 2 mg ONCE ONCE IV 09/28/16 13:00 09/28/16 13:01 DC 09/28/16 12:51 Ondansetron HCl 4 mg 4 mg ONCE STAT IV 09/28/16 12:41 09/28/16 12:43 DC 09/28/16 12:51 Sodium Chloride (NS) 1,000 ml @ 1,000 mls/hr Q1H ONCE IV 09/28/16 14:30 09/28/16 15:29 DC 09/28/16 14:15 Ketorolac Tromethamine (Toradol) 30 mg ONCE STAT IV 09/28/16 14:11 09/28/16 14:12 DC 09/28/16 14:16 Today her hemoglobin is 8.3 with hematocrit of 27 On examination abdomen is soft no hepatosplenomegaly the uterus is slightly enlarged ,palpation of uterus from the suprapubic area is difficult now,apparently the uterus became smaller On pelvic examination she has a slight vaginal bleeding vulva vagina is normal Cervix is closed The uterus is enlarged about 8-9 weeks gestational size and it is firm Perimenopausal bleeding Impression uterine fibroid Vaginal bleeding postmenopausal Disposition. I explained to the patient that hysterectomy would be a good idea however not as an emergency condition She should contact her [place] [employer] to arrange for such procedure . She also will need approval from her your insurance company . She was discharged home in stable condition and promised to arrange follow up with her physicians. KANDIS ALANIS MD Sep 28, 2016 16:24
== END 2016-09-28 16:05 | disposition home or self-care (01) ==
LOC: E/R 12:14
DX: N93.9 Abnormal uterine and vaginal bleeding, unspecified (principal); D25.9 Leiomyoma of uterus, unspecified; D64.9 Anemia, unspecified; R10.2 Pelvic and perineal pain; R11.2 Nausea with vomiting, unspecified
CPT/HCPCS: 80053; 81003; 83690; 85025; 86850; 86900; 86901; 86920; J1885; J2270; J2405; J7030; 36415; 96374; 96375

== ENCOUNTER 2018-02-11 08:56 | Emergency (ER) | END 2018-02-11 11:23 | disposition home or self-care (01) ==